=== PATIENT | male | born 2000 | race Hispanic/Latino ===

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

== ENCOUNTER 2022-08-26 04:02 | Emergency (ER) | payer MEDICAID, OTHER ==
[~2022-08-26] VITALS: Ht 172.7 cm; Wt 74.8 kg
[2022-08-26 04:02] VITALS: BP 120/73
[2022-08-26] MEDS ORDERED: ONDANSETRON 4MG INJ IVP ONE (04:30)
[2022-08-26] MEDS ORDERED: LACTATED RINGERS 1000ML 1,000 ML IV ONE (04:30)
[2022-08-26 04:33] LABS: BASOPHILS % (AUTO) 0.3 % (0.0-5.0); EOSINOPHILS % (AUTO) 0.3 % (0.0-8.0); HEMATOCRIT 42.7 % (42-54); LYMPHOCYTES % (AUTO) 13.7 % (21.0-51.0); MEAN CORPUSCULAR HEMOGLOBIN 30.5 pg (27.0-33.0); MEAN CORPUSCULAR HGB CONC 34.2 g/dL (32.0-36.0); MEAN CORPUSCULAR VOLUME 89.3 fL (80-100); MONOCYTES % (AUTO) 7.3 % (3.0-13.0); PLATELET COUNT (AUTO) 227 K/uL (130-400); RED BLOOD CELL COUNT(AUTO) 4.78 MIL/uL (4.50-6.20); RED CELL DISTRIBUTION WIDTH 13.2 % (11.0-15.5); WHITE BLOOD COUNT (AUTO) 11.5 K/uL (4.8-10.8)
[2022-08-26] MEDS ORDERED: IOHEXOL 350 MG/ML 100ML INFUS..BTL IV ONE (04:37)
[2022-08-26 04:46] LABS: CARBON DIOXIDE 28 mmol/L (21-32); CHLORIDE 100 mmol/L (101-111); CREATININE 1.1 mg/dL (0.5-1.5); GLOMERULAR FILTR. RATE CALC 98 mL/min (>90); GLUCOSE,RANDOM 115 mg/dL (70-105); POTASSIUM 3.7 mmol/L (3.5-5.1); SODIUM SERUM 138 mmol/L (136-145); UREA NITROGEN, BLOOD 21 mg/dL (7-18)
[2022-08-26 04:50] LABS: ALANINE AMINOTRANSFERASE 19 U/L (12-78); ALBUMIN 4.1 g/dL (3.5-5.0); ASPARTATE AMINOTRANSFERASE 15 U/L (10-37); CREATINE KINASE, TOTAL 130 U/L (21-232); TOTAL PROTEIN, SERUM 7.2 g/dL (6.0-8.3)
[2022-08-26 05:51] LABS: APPEARANCE,URINE CLEAR (CLEAR); BILIRUBIN,URINE NEGATIVE (NEGATIVE); COLOR,URINE LIGHT-YELLOW (YELLOW); GLUCOSE, URINE (UA) NEGATIVE (NEGATIVE); KETONES,URINE NEGATIVE (NEGATIVE); LEUKOCYTE ESTERASE ,URINE NEGATIVE Leu/uL (NEGATIVE); NITRATE,URINE NEGATIVE (NEGATIVE); OCCULT BLOOD,URINE NEGATIVE (NEGATIVE); PROTEIN,URINE 20 mg/dL (NEGATIVE); UROBILINOGEN,URINE 0.2 mg/dL (0.2-1.0)
[2022-08-26 05:58] LABS: AMPHET/METH SCREEN,URINE NEGATIVE (NEGATIVE); BARBITURATE SCREEN, URINE NEGATIVE (NEGATIVE); BENZODIAZEPINES SCREEN,URINE NEGATIVE (NEGATIVE); CANNABINOID SCREEN,URINE NEGATIVE (NEGATIVE); COCAINE SCREEN,URINE NEGATIVE (NEGATIVE); OPIATE SCREEN,URINE NEGATIVE (NEGATIVE); PHENCYCLIDINE SCREEN,URINE NEGATIVE (NEGATIVE)
[2022-08-26] MEDS ORDERED: NAPR-1192 PO (05:58)
[2022-08-26] MEDS ORDERED: CYCL10TA16 PO (05:58)
== END 2022-08-26 06:10 | disposition home or self-care (01) ==
LOC: EDH 04:02
DX: S20.212A Contusion of left front wall of thorax, initial encounter (principal); S00.531A Contusion of lip, initial encounter; V89.2XXA Person injured in unspecified motor-vehicle accident, traffic, initial encounter; Y93.I9 Activity, other involving external motion; Y92.488 Other paved roadways as the place of occurrence of the external cause; Y99.8 Other external cause status
CPT/HCPCS: 99285; 70450; 96374; 96361; 82550; 84484; 80053; 80305; 85025; 83605; 36415; 72125; 71260; 74177; 93005; 81003; J7120; J2405; Q9967

== ENCOUNTER 2024-06-07 13:09 | Emergency (ER) | payer SELFPAY ==
[~2024-06-07] VITALS: Ht 172.7 cm; Wt 72.6 kg
[~2024-06-07 13:09] MED LIST: CYCL10TA16 PO; NAPR-1192 PO
[2024-06-07] MEDS: ondanSETRON 4MG INJ IVP ONE (13:30)
[2024-06-07] MEDS: morPHINE 2 MG SYG IVP ONE (13:30)
[2024-06-07] MEDS: ceFAZolin SODIUM 1 GM VIAL IVPB ONE (14:09)
[2024-06-07] MEDS: teTANUS/diphthERIA TOXOID [ADULT] 0.5 ML VIAL IM ONE (14:12)
--- NOTE | 2024-06-07 14:28 | HMCIMG ---
TOE(S) 2+VWS LT INDICATION: r/o fracture TECHNIQUE: TOE(S) 2+VWS LT. FINDINGS AND IMPRESSION: No displaced fracture or dislocation is seen. Correlate clinically. There is diffuse soft tissue swelling involving the first toe. No radiopaque foreign body is identified.
--- NOTE | 2024-06-07 15:19 | ERN ---
General Chief Complaint: FOOT INJURY/PAIN Stated Complaint: LEFT FOOT LACERATION Time Seen by MD: 13:11 Time Seen by Midlevel: 13:11 Source: patient History of Present Illness Initial Comments The patient is a 24-year-old male presenting to the emergency department with a left great toe injury. The patient states he was working on his truck when the Dash fell on his left toe. Patient immediately reported to the ER for further evaluation. He rates his pain 02/27. Denies being up-to-date with his tetanus vaccination. Patient has no other concerns at this time. Allergies: Coded Allergies: No Known Drug Allergies (Verified Allergy, 05/20/12) Home Meds Active Scripts Naproxen (Naproxen) 375 Mg Tablet, 375 MG PO BID for 10 Days, #20 TAB 0 Refills Prov:JH AJ Sr., MD 08/26/22 Cyclobenzaprine HCl (Flexeril) 10 Mg Tab, 10 MG PO TID for muscle sstiffness, #14 TAB 0 Refills Prov:JH AJ Sr., MD 08/26/22 Past Medical History Past Medical History: No Pertinent History Past Surgical History: None ROS Dictation CONSTITUTIONAL: Negative except for HPI HEAD/FACE: Negative except for HPI EENT: Negative except for HPI RESPIRATORY: Negative except for HPI GASTROINTESTINAL/ABDOMINAL: Negative except for HPI GENITOURINARY: Negative except for HPI MUSCULOSKELETAL: Negative except for HPI INTEGUMENTARY: Negative except for HPI NEUROLOGICAL/PSYCH: Negative except for HPI HEMATOLOGIC/LYMPHATIC: Negative except for HPI All Systems Negative, Except as noted above. 13 point review of systems assessed and all negative except for above. Physical Exam Physical Exam Dictation PHYSICAL EXAM: GENERAL: alert,, awake oriented x 3 HEENT: EOMI, Sclera non icteric, moist mucosa NECK: Supple, no JVD, trachea midline LUNGS: Clear breath sounds bilaterally. No wheezes HEART: Regular rate and rhythm. Normal S1 and S2, without murmurs ABD: Abdomen soft, nontender. Bowel sounds present EXT: No clubbing or cyanosis, NEURO: Alert and oriented to person, follows commands SKIN: There is a vertical laceration to the distal aspect of the left great toe with minimal active bleeding, there is moderate amount of swelling throughout the distal left great toe, nail appears to be cut in half MDM MDM: The patient is a 24-year-old male presenting to the emergency department with a left great toe injury. The patient states he was working on his truck when the Dash fell on his left toe. Patient immediately reported to the ER for further evaluation. He rates his pain 1/10. Denies being up-to-date with his tetanus vaccination. Patient has no other concerns at this time. On physical examination there is a vertical laceration to the distal aspect of the left great toe with minimal active bleeding, there is moderate amount of swelling throughout the distal left great toe, nail appears to be cut in half. X-ray of the left toe reveals no acute fracture. The laceration was successfully repaired with three simple interrupted sutures. The bleeding was controlled. The patient was given 1 g of Ancef IV and was given a tetanus vaccination. The patient was given wound care precautions and was sent home with an oral antibiotic. Red flag symptoms discussed. Patient is stable for discharge at this time Differential diagnosis: Open fracture, closed fracture, There are no social concerns with this patient. Prescription drug management Prescriptions will include: Medical management and examination interpretation discussions were had by me with other qualified healthcare professionals as indicated for the patient's care. ED Course Orders Procedure Category Date Status Time Toe(S) 2+Vws Lt RAD 06/07/24 Resulted 13:13 Cefazolin Sodium 1 Gm PHA 06/07/24 Complete Vial (Ancef 1 Gm V 13:30 Tetanus,Diphtheria PHA 06/07/24 Complete Tox [Adult] (Diphther 13:30 Morphine 2mg Syg PHA 06/07/24 Complete (Morphine 2mg Syg) 13:30 Ondansetron 4mg Inj PHA 06/07/24 Complete (Zofran 4mg Inj) 13:30 Current Medications Medications (Trade) Dose Ordered Sig/Elio Route PRN Reason Start Time Stop Time Status Last Admin Dose Admin Cefazolin Sodium (ANCEF 1 gm vial) 1 gm ONCE ONCE IVPB 06/07/24 13:30 06/07/24 13:31 DC 06/07/24 14:09 Morphine Sulfate (morPHINE 2MG SYG) 2 mg ONCE ONCE IVP 06/07/24 13:30 06/07/24 13:31 DC Ondansetron HCl (zoFRAN 4MG INJ) 4 mg ONCE ONCE IVP 06/07/24 13:30 06/07/24 13:31 DC Tetanus/ Diphtheria Toxoids Adsorbed (DiphthERIA-teTANUS TOXOID [ADULT]/ DECAVAC) 0.5 ml ONCE ONCE IM 06/07/24 13:30 06/07/24 13:31 DC 06/07/24 14:12 Vital Signs Date Time Temp Pulse Resp B/P (MAP) Pulse Ox O2 Delivery O2 Flow Rate FiO2 06/07/24 13:11 98.6 84 18 100 Room Air 0 [facility] [address] [place] [address] IMAGING REPORT Signed PATIENT: CHARLIE GUAN JR MR#: [id number] : 2000 SEX: M AGE: 24 LOCATION: [facility] ORDER 1315 STATUS: REG REPORT#: [id number] SERVICE 12 REASON: r/o fracture ORDERING PHYSICIAN: BENNY CAMPUZANO PROCEDURE: TOES LT - TOE(S) 2+VWS LT TOE(S) 2+VWS LT INDICATION: r/o fracture TECHNIQUE: TOE(S) 2+VWS LT. FINDINGS AND IMPRESSION: No displaced fracture or dislocation is seen. Correlate clinically. There is diffuse soft tissue swelling involving the first toe. No radiopaque foreign body is identified. DICTATED BY: MICKIE BLEVINS MD DATE: 06/07/241424 ELECTRONICALLY SIGNED BY: MICKIE BLEVINS MD DATE: 06/07/241427 Procedure Dictation Procedure Name: Laceration Repair Indication: Reduce risk of infection Location: Distal tip of the left great toe, laceration measuring approximately 3 cm Pre-Procedure Diagnosis: Laceration Post-Procedure Diagnosis: Repaired Laceration Informed consent was obtained before procedure started. PROCEDURE: The appropriate timeout was taken. The area was prepped and draped in the usual sterile fashion. Local anesthesia was achieved using 2cc of Lidocaine 1% without epinephrine. The wound was copiously irrigated. 3 3-0 Ethilon simple interrupted sutures were placed. Estimated blood loss was less than 0.5 mL. A dressing was applied to the area and anticipatory guidance, as well as standard post-procedure care, was explained. Return precautions are given. The patient tolerated the procedure well without complications. Follow-up visit set for suture removal and evaluation of the laceration. DX & DISP Disposition: Discharge Departure Impression: Primary Impression: Laceration of left great toe Additional Impression: Contusion of left great toe with damage to nail Condition: Stable Additional Instructions: You had a vertical laceration to the left great toe. Three sutures were placed. These will need to be removed in 7-10 days. Please watch for any signs of infection. You were given IV antibiotics in the emergency department and I have provided you with a prescription for oral antibiotics for the next seven days. Return to the ER if you develop any new or worsening symptoms. Referrals: SELF,REFERRAL (PCP) Time of Disposition: 15:12 I have reviewed the case, and I agree with, Diagnosis and Plan I performed the substantive portion of the visit. I have reviewed and personally made and approve the management plan that is documented in the note by myself or the BEN. I acknowledge for responsibility for the patient's management plan. BENNY CAMPUZANO Jun 07, 2024 15:19
[2024-06-07 15:39] VITALS: BP 106/64; PULSE 68; RESP 16; TEMP 98.3; O2SAT 98
--- NOTE | 2024-06-07 15:40 | NUR ---
PT INFORMED RETURN 7-10 DAYS FOR SUTURE REMOVAL
== END 2024-06-07 15:48 | disposition home or self-care (01) ==
LOC: EDH 13:09
DX: S91.112A Laceration without foreign body of left great toe without damage to nail, initial encounter (principal); S90.212A Contusion of left great toe with damage to nail, initial encounter; W20.8XXA Other cause of strike by thrown, projected or falling object, initial encounter; Y93.89 Activity, other specified; Y92.89 Other specified places as the place of occurrence of the external cause; Y99.8 Other external cause status
CPT/HCPCS: 99284; 96365; 90714; 73660; 90471; 12002; J0690